=== PATIENT | female | born 1995 | race Caucasian/White ===

== ENCOUNTER 2024-09-29 07:54 | Inpatient (IN) ==
[2024-09-29] MEDS ORDERED: ACETAMINOPHEN 325 MG TAB PO PRN (07:56)
[2024-09-29] MEDS ORDERED: CALCIUM CARBONATE 500 MG CHEWABLE TAB PO PRN (07:56)
[2024-09-29] MEDS ORDERED: LIDOCAINE 1% LOCAL 20 ML VIAL INFIL PRN (07:56)
[2024-09-29] MEDS ORDERED: OXYTOCIN 30 UNITS/NSS 30 UNITS/500 ML BAG IV PRN (07:56)
--- NOTE | 2024-09-29 08:32 | History & Physical Report ---
Date of Service September 29, 2024 Assessment & Plan (1) Gestational diabetes: (2) Supervision of normal intrauterine in primigravida: (3) Encounter for induction of labor: Plan 29-year-old G1, P0 currently at 40 weeks 6 days gestational age presents for induction of labor. Favorable cervix on exam we will start with oxytocin per regular protocol plan for rupture membranes when appropriate. Category 1 tracing will continue to monitor. Vitals within normal limits. Admission and Anticipated Discharge Date Admission Date: September 29, 2024 History of Present Illness Primary Care Provider: PIPE Noantha is a 29-year-old currently at 40 weeks 6 days gestational age presents for induction of labor. plans: Gestational Diabetes Growth u/s's q 4 weeks OB Labs: Blood Type O Positive 02/26/24 Antibody Screen NEGATIVE 02/26/24 Hgb 10.3 g/dl (12.0-16.0) L 07/01/24 Hct 31.4 % (37.0-47.0) L 07/01/24 MCV 86.4 fL (80.0-100.0) 02/26/24 Plt Count 196 K/uL (130-400) 02/26/24 Rubella IgG Antibody Immune (Immune) 02/26/24 Treponema pallidum Ab Negative (Negative) 07/01/24 Hep Bs Antigen Negative (Negative) 02/26/24 Hepatitis C Antibody Negative (Negative) 02/26/24 HIV 1&2 Ab/P24 Ag 4thGn Negative (Negative) 02/26/24 Glucose 1 Hr 50 gm 189 mg/dl (70-130) H 07/01/24 OB Optional Labs: Chlamydia trachomatis RNA Not Detected (NotDetected) 02/26/24 Neisseria gonorrhoeae RNA Not Detected (NotDetected) 02/26/24 Allergies Allergy/AdvReac Type Severity Reaction Status Date / Time No Known Allergies Allergy Verified 09/25/24 15:36 Home Medications Medication Instructions Recorded Confirmed Type erythromycin-benzoyl peroxide 3 1 applic topical DAILY #46.6 grams 06/15/23 09/25/24 Rx %-5 % topical gel tretinoin 0.025 % topical cream 1 applic topical .COMPLEX #45 grams 06/15/23 09/25/24 Rx prenat.vits,yani,tjd-euji-buunc tab PO 02/19/24 09/25/24 History acetone (urine) test (Ketone Urine #50 ea 07/11/24 09/25/24 Rx Test strips) blood-glucose meter (OneTouch #1 ea 07/11/24 09/25/24 Rx Verio Reflect Meter) lancets 33 gauge (OneTouch Delica #150 ea 07/11/24 09/25/24 Rx Plus Lancet) blood sugar diagnostic (OneTouch #150 ea 08/13/24 09/25/24 Rx Verio test strips) Patient History Surgical History H/O oral surgery S/P wisdom tooth extraction H/O lumpectomy Family History Grandfather Myocardial infarction Mother Gallbladder disease Hypertension Denies family history of Ovarian cancer Prostate cancer Breast cancer Colorectal cancer Social History (Updated 02/19/24 @ 13:40 by Vidhya Thapa) Smoking Status: Never smoker Second Hand Exposure: No; Do You Dip or Chew Tobacco: No; Hx Alcohol Use: Yes Alcohol Intake Frequency: 2-3 x/Week Hx Substance Use: No Preferred Language: Sami Communication Ability: Effective Visual Impairment: No Limitations Hearing Ability: Normal Beliefs That Will Affect Care: None marital status: marital status details: Florina (28) [phone] Current Living Situation: Spouse Current Living Situation Comment: lives with spouse, 1 dog. current occupational status: employed current occupation: call center [employer] Other Information That Helps Us Care for You: No Feels Safe at Home: Yes Safety Concerns: Feels Safe At This Time Childhood Exposure to Second-Hand Smoke: Yes Diet: regular caffeine: Yes Dental Care, Regularly: Yes Physical Activity Frequency: 1-2 Times per Week Seatbelt Use: always Sunscreen Use: Yes Assistive Devices: None Physical Exam Genitourinary: normal external appearance OB Exam Abdomen: + vertex Manual OB Exam: + cervical dilation 3 cm, + cervical effacement 60% and + station high OB Exam Monitor Tracing: + external FHT monitor used, + external uterine monitor used, + category I and + normal FHT variability Results & Data Vital Signs (Past 12 Hours) Vital Signs Temp Pulse Resp BP 09/29/24 08:09 78 120/78 09/29/24 08:02 36.8 C 18 Coding Level of Care Code None Diagnoses Diet controlled gestational diabetes mellitus (GDM) in third trimester O24.410 Gestational diabetes mellitus control: diet-controlled Trimester: third trimester Supervision of normal intrauterine in primigravida Z34.00 Encounter for induction of labor Z34.90 (1) Gestational diabetes Gestational diabetes mellitus control: diet-controlled Trimester: third trimester Qualified Code(s): O24.410 - Gestational diabetes mellitus in , diet controlled
[2024-09-29 08:42] LABS: Hematocrit (blood only) 35.0 % (37.0-47.0); Hemoglobin 11.8 g/dl (12.0-16.0); Mean Corpuscular Hemoglobin 30.1 pg (25.0-34.0); Mean Corpuscular Volume 89.3 fL (80.0-100.0); Platelet Count 134 K/uL (130-400); RDW Standard Deviation 47.3 fL (36.4-46.3); Red Blood Count 3.92 M/uL (4.20-5.40); White Blood Count 8.05 K/ul (4.8-10.8)
[2024-09-29] MEDS: LACTATED RINGER'S 1,000 ML IV PRN (08:54)
[2024-09-29] MEDS: OXYTOCIN 30 UNITS/NSS 30 UNITS/500 ML BAG IV PRN (08:55)
[2024-09-29] MEDS ORDERED: NALBUPHINE HCL INJ 10 MG/ML AMP IV PRN (15:55)
[2024-09-29] MEDS ORDERED: NALOXONE HCL 1 MG in SODIUM CHLORIDE 0.9% 1,000 ML IV PRN (15:55)
[2024-09-29] MEDS ORDERED: ONDANSETRON INJ 2 MG/ML 2 ML VIAL IV PRN (15:55)
[2024-09-29] MEDS ORDERED: diphenhydrAMINE 50 MG/ML VIAL IV PRN (15:55)
[2024-09-29] MEDS ORDERED: LIDOCAINE 2% MPF LOCAL 5 ML VIAL EPI PRN (15:55)
[2024-09-29] MEDS ORDERED: NALOXONE HCL 0.4 MG/1 ML VIAL/CARP IV PRN (15:55)
[2024-09-29] MEDS ORDERED: SODIUM CHLORIDE 0.9% PF INJ 10 ML VIAL EPI PRN (15:55)
[2024-09-29] MEDS ORDERED: BUPIVACAINE 0.25% PF 30 ML VIAL EPI PRN (15:55)
[2024-09-29] MEDS ORDERED: ROPIVACAINE 0.5% PF 5 MG/ML 20 ML VIAL EPI PRN (15:55)
--- NOTE | 2024-09-29 15:58 | Anesthesiology Consultation ---
Date of Service September 29, 2024 Assessment & Plan (1) Encounter for pre-operative examination: Chart Review Chart Review: Patient NOT seen in Pre Admission Testing and Acceptable Risk for Labor Epidural Consults Requested none History Height/Weight Height: 5 ft 2 in Weight: 70.76 kg Allergies Allergy/AdvReac Type Severity Reaction Status Date / Time No Known Allergies Allergy Verified 09/29/24 08:47 Medications Home Medications Medication Instructions Recorded Confirmed Last Taken erythromycin-benzoyl peroxide 3 1 applic topical DAILY #46.6 grams 06/15/23 09/29/24 Unknown %-5 % topical gel tretinoin 0.025 % topical cream 1 applic topical .COMPLEX #45 grams 06/15/23 09/29/24 Unknown acetone (urine) test (Ketone Urine #50 ea 07/11/24 09/25/24 Unknown Test strips) blood-glucose meter (IntcomexTouch #1 ea 07/11/24 09/25/24 Unknown Verio Reflect Meter) lancets 33 gauge (OneTouch Delica #150 ea 07/11/24 09/25/24 Unknown Plus Lancet) blood sugar diagnostic (OneTouch #150 ea 08/13/24 09/25/24 Unknown Verio test strips) ferrous sulfate 325 mg (65 mg 325 mg PO DAILY 09/29/24 09/29/24 Unknown iron) tablet (iron) Active Medications Generic Name Dose Route Start Last Admin Trade Name Freq PRN Reason Stop Dose Admin Lactated Ringer's 1,000 mls @ 125 mls/hr 09/29/24 07:56 09/29/24 15:53 Lr IV 10/01/24 07:55 999 mls/hr .Q8H PRN Administration L&D Protocol Protocol Oxytocin 30 units in 500 mls @ 18 mls/hr 09/29/24 08:13 09/29/24 15:00 Pitocin 30 Units/Nss IV 10/01/24 08:12 1.08 units/hr .Q24H PRN 18 mls/hr Labor Induction/Augmentation Titration Protocol 1.08 UNITS/HR Past Medical History Medical History (Updated 09/29/24 @ 15:58 by Shimon Simpson MD) Encounter for pre-operative examination Gestational diabetes Exercise / Class Metabolic Activity II 4-5 Yardwork/Stairs/Walk up hill Past Family History Family History Grandfather Myocardial infarction Mother Gallbladder disease Hypertension Denies family history of Ovarian cancer Prostate cancer Breast cancer Colorectal cancer Past Surgical History Surgical History H/O oral surgery TOOTH EXTRACTION S/P wisdom tooth extraction H/O lumpectomy Social History Smoking Status: Never smoker Do You Dip or Chew Tobacco: No Hx Alcohol Use: Yes Hx Substance Use: No substance use type: does not use Physical Exam Vital Signs Last Vital Signs Temp 37.0 C 09/29/24 14:57 Pulse 80 09/29/24 16:17 Resp 18 09/29/24 14:57 BP 137/73 09/29/24 16:17 Pulse Ox 100 09/29/24 16:17 Testing Laboratory Results 09/29/24 08:18 09/29/24 10:05 POC Glucose 72
[2024-09-29] MEDS: fentANYL 2 MCG/ML BUPIVacaine 0.125%-NSS 100ML BAG ONE (16:18)
[2024-09-29] MEDS: BUPIVACAINE 0.25% PF 30 ML VIAL ONE (16:22)
[2024-09-29] MEDS: LIDOCAINE 2%/EPINEPHRINE 1:200,000 20 ML PF ONE (16:23)
[2024-09-29] MEDS: BUPIVACAINE 0.25% PF 30 ML VIAL EPI STA (18:58)
[2024-09-29] MEDS: LIDOCAINE 2%/EPINEPHRINE 1:200,000 20 ML PF EPI STA (18:58)
[2024-09-29] MEDS: SODIUM CHLORIDE 0.9% PF INJ 10 ML VIAL EPI STA (18:58)
[2024-09-29] MEDS: SODIUM CHLORIDE 0.9% PF INJ 10 ML VIAL ONE (18:58)
[2024-09-30] MEDS: fentANYL 2 MCG/ML BUPIVacaine 0.125%-NSS 100ML BAG EPI PRN (00:57)
--- NOTE | 2024-09-30 04:28 | Delivery Summary ---
Vaginal Delivery Summary Date of Service September 30, 2024 Vaginal Delivery Summary and 2nd Degree LAC Induction of labor with spontaneous vaginal delivery the patient was initially given Pitocin quested epidural and had her artificial rupture of membranes she then eventually progressed to fully dilated she had vaginal tearing during pushing as was noted by vaginal bleeding there was a tight ring of tissue at the vaginal opening I asked the patient if it would be reasonable to do a small episiotomy I suggested this might reduce tearing the patient agreed a 1 cm midline episiotomy was made with scissors. This quickly allowed the baby's head to be delivered a nuchal cord x 1 was passed over the baby's head after delivery of the head gentle traction the baby no excessive force live vigorous male infant cord clamped and cut cord blood obtained placenta removed with traction IV Pitocin started vaginal sulcal lacerations were repaired as well as the episiotomy with 3-0 Vicryl sponge instrument counts correct QBL is 590 mL [facility] Vaginal Delivery Charge Delivery Type Details: and 2nd Degree LAC
[2024-09-30] MEDS ORDERED: OXYTOCIN 30 UNITS/NSS 30 UNITS/500 ML BAG IV PRN (04:39)
[2024-09-30] MEDS ORDERED: HYDROCORTISONE ACETATE 25 MG SUPP PR PRN (04:39)
[2024-09-30] MEDS: IBUPROFEN 600 MG TAB PO PRN (05:26)
[2024-09-30] MEDS: BENZOCAINE 20% SPRY 85 APPLN/85 GM CAN EXT PRN (05:28)
[2024-09-30] MEDS: DIPHTHER/TETAN/PERTUS Vaccine (Tdap, Adol/Adult) 0.5mL IM ONE (05:39)
[2024-09-30] MEDS: ACETAMINOPHEN 325 MG TAB PO PRN (06:00)
--- NOTE | 2024-09-30 08:41 | Anesthesia Procedure Note ---
Date of Service September 30, 2024 Anesthesia Post Epidural Note Vital Signs Vital Signs: Temp Pulse Resp BP Pulse Ox 37.1 C 120 H 18 124/60 98 09/30/24 06:47 09/30/24 08:32 09/30/24 07:15 09/30/24 08:32 09/30/24 07:07 Pain Intensity Episiotomy/Laceration: Pain Intensity: 6 Back: Pain Intensity: 6 Abdomen: Pain Intensity: 1 Notes Mental Status: alert / awake / arousable and participated in evaluation Nausea / Vomiting: adequately controlled Pain: adequately controlled Airway Patency, RR, SpO2: stable & adequate BP & HR: stable & adequate Hydration State: stable & adequate Neuraxial Anesthesia: was administered and sensory block is resolving Anesthetic Complications: no major complications apparent Epidural: Removed without complications and With tip intact
[2024-09-30] MEDS: DOCUSATE SODIUM 100 MG CAP PO SCH (09:03)
[2024-09-30] MEDS: PRENATAL VITAMIN 1 TAB PO SCH (09:03)
[2024-10-01 01:26] VITALS: RESP 16; TEMP 98.2
[2024-10-01 07:06] LABS: Hematocrit (blood only) 23.9 % (37.0-47.0); Hemoglobin 8.1 g/dl (12.0-16.0); Mean Corpuscular Hemoglobin 30.6 pg (25.0-34.0); Mean Corpuscular Volume 90.2 fL (80.0-100.0); Platelet Count 125 K/uL (130-400); RDW Standard Deviation 48.6 fL (36.4-46.3); Red Blood Count 2.65 M/uL (4.20-5.40); White Blood Count 13.45 K/ul (4.8-10.8)
--- NOTE | 2024-10-01 07:22 | Obstetrical Progress Note ---
Date of Service October 01, 2024 Assessment & Plan (1) care following vaginal delivery: Plan stable, doing well. dc home, instructions reviewed. f/u 6 wk pp check. breast, rhpos, ri. Subjective Ambulation: ambulating normally Voiding: no voiding problems Diet Tolerance:: regular diet Lochia:: Small Feeding Type:: breast feeding no pain issues. breast feeding going well. Constitutional: + as per Subjective / HPI Physical Exam Constitutional WD/WN, vitals as above Respiratory normal respiratory effort, lungs clear to auscultation Cardiovascular Rate/Rhythm: regular rate and regular rhythm Gastrointestinal (Abdomen) Inspection/Auscultation: abdomen normal to inspection Percussion/Palpation: abdomen soft Fundus firm 1cm down Musculoskeletal nt calves no edema Neurologic grossly normal Psychiatric A+Ox3, euthymic affect Results & Data Vital Signs (Past 12 Hours) Vital Signs Temp Pulse Resp BP Pulse Ox O2 Del Method 10/01/24 04:00 98.2 F 101 H 16 118/65 97 Room Air 10/01/24 00:00 98.2 F 74 16 125/74 97 Room Air
[2024-10-01 08:17] VITALS: BP 113/73; PULSE 96; O2SAT 96
== END 2024-10-01 14:30 | disposition home or self-care (01) | DRG 807 ==
LOC: 4S1 07:54 → 4E1 09-30 10:06